=== PATIENT | male | born 1985 ===

== ENCOUNTER 2017-09-19 22:04 | Emergency (ER) | payer SELFPAY ==
[2017-09-19] MEDS ORDERED: Alum-Mag Hydrox-Simethicone Susp (30 mL) PO STA (22:17)
[2017-09-19 22:18] VITALS: BMI 28.0
--- NOTE | 2017-09-19 22:23 | ED PDOC ---
Arrival/HPI <Pb Dey - Last Filed: 09/19/17 22:42> - General Historian: Patient - History of Present Illness Time/Duration: 1 week Symptom Onset: Sudden Symptom Course: Unchanged Activities at Onset: Rest, Light Context: Home <Alexi Chisholm - Last Filed: 09/19/17 22:55> - General Time Seen by Provider: 09/19/17 22:05 - History of Present Illness Narrative History of Present Illness (Text): 09/19/17 22:17 A 32 year old male, with no significant past medical history, presents to the emergency department for a complaint of 1 week duration throat pain. The patient denies any URI symptoms. He states that it is occasionally associated with burping and his acid stomach coming up to the throat. The patient also notes that he had epigastric discomfort for the past few days but resolved, currently denies any abdominal pain at this time. He notes that he had an episode of epistaxis yesterday that resolved on its own as well, not on any blood thinner or anticoagulant, atraumatic. The patient denies fevers, chills, headache, dizziness, chest pain, shortness of breath, dyspnea on exertion, cough , abdominal pain, nausea, vomiting, diarrhea, back pain, neck pain, urinary/ bowel changes, recent travel, trauma/injury, or any other complaint. (Alexi Chisholm) Past Medical History - Provider Review Nursing Documentation Reviewed: Yes - Infectious Disease Hx of Infectious Diseases: None - Psychiatric Hx Substance Use: No - Anesthesia Hx Anesthesia: No <Alexi Chisholm - Last Filed: 09/19/17 22:55> Family/Social History - Physician Review Nursing Documentation Reviewed: Yes Family/Social History: No Known Family HX Smoking Status: Never Smoked Hx Alcohol Use: No Hx Substance Use: No <Alexi Chisholm - Last Filed: 09/19/17 22:55> Allergies/Home Meds <Pb Dey - Last Filed: 09/19/17 22:42> <Alexi Chisholm - Last Filed: 09/19/17 22:55> Allergies/Adverse Reactions: Allergies No Known Allergies Allergy (Verified 09/19/17 22:14) Review of Systems - Physician Review All systems were reviewed & negative as marked: Yes - Review of Systems Constitutional: absent: Fevers, Night Sweats ENT: Sore Throat ("Throat pain"). absent: Epistaxis Respiratory: absent: SOB, Cough Cardiovascular: absent: Chest Pain, ENRIQUE Gastrointestinal: absent: Abdominal Pain, Diarrhea, Nausea, Vomiting Genitourinary Male: absent: Urinary Output Changes Musculoskeletal: absent: Back Pain, Neck Pain Neurological: absent: Headache, Dizziness <Alexi Chisholm - Last Filed: 09/19/17 22:55> Physical Exam Vital Signs Reviewed: Yes Temperature: Afebrile Blood Pressure: Normal Pulse: Regular Respiratory Rate: Normal Appearance: Positive for: Well-Appearing, Non-Toxic, Comfortable Pain Distress: Mild Mental Status: Positive for: Alert and Oriented X 3 - Systems Exam Head: Present: Atraumatic, Normocephalic Pupils: Present: PERRL Extroacular Muscles: Present: EOMI Conjunctiva: Present: Normal Ears: Present: NORMAL TM, Normal Canal. No: Erythema Mouth: Present: Moist Mucous Membranes Pharnyx: No: ERYTHEMA, EXUDATE, TONSILS ENLARGED, Peritonsilar Swelling, Uvular Deviation, Muffled/Hoarse Voice, Strider, Soft Palate/Uvular Edema Nose (External): Present: Atraumatic. No: Abrasion, Contusion, Laceration Nose (Internal): Present: Normal Inspection, No Active Bleeding (No dry blood present.). No: Rhinorrhea, Septal Deviation, Septal Hematoma, Epistaxis Neck: Present: Normal Range of Motion Respiratory/Chest: Present: Clear to Auscultation, Good Air Exchange. No: Respiratory Distress, Accessory Muscle Use Cardiovascular: Present: Regular Rate and Rhythm, Normal S1, S2. No: Murmurs Abdomen: No: Tenderness, Distention, Peritoneal Signs, Rebound, Guarding Back: Present: Normal Inspection Upper Extremity: Present: Normal Inspection. No: Cyanosis, Edema Lower Extremity: Present: Normal Inspection. No: Edema Neurological: Present: GCS=15, CN II-XII Intact, Speech Normal Skin: Present: Warm, Dry, Normal Color. No: Rashes Psychiatric: Present: Alert, Oriented x 3, Normal Insight, Normal Concentration <Alexi Chisholm - Last Filed: 09/19/17 22:55> Vital Signs Temp Pulse Resp BP Pulse Ox 09/19/17 22:15 98.3 F 87 18 134/83 97 Medical Decision Making <Pb Dey - Last Filed: 09/19/17 22:42> <Alexi Chisholm - Last Filed: 09/19/17 22:55> ED Course and Treatment: 09/19/17 22:25 Impression: A 32 year old male presents to the emergency department for a complaint of 1 week duration throat pain, associated epigatric discomfort, an episode of epistaxis, and burping. Plan: -- Rapid Strep Test -- Bentyl, Lidocaine, Maalox -- Reassess and disposition 09/19/17 22:52 -Rapid strept is negative, pt. feels better, no signs of infection at this time , likely GI induced from GERD. -Discharge home with tylenol, pepcid, stay hdydrated, soft food diet, follow up with your own pmd and ENT within 2 days, return to the ER for any new or worsening signs or symptoms. (Alexi Chisholm) - Lab Interpretations Lab Results: Lab Results 09/19/17 22:23: Grp A Beta Strep Ag Negative - Medication Orders Current Medication Orders: Discontinued Medications Al Hydrox/Mg Hydrox/Simethicone (Maalox Plus 30 Ml) 30 ml PO STAT STA Stop: 09/19/17 22:18 Last Admin: 09/19/17 22:31 Dose: 30 ml Dicyclomine HCl (Bentyl) 20 mg PO STAT STA Stop: 09/19/17 22:18 Last Admin: 09/19/17 22:31 Dose: 20 mg Lidocaine HCl (Lidocaine 2% Viscous) 15 ml PO STAT STA Stop: 09/19/17 22:18 Last Admin: 09/19/17 22:31 Dose: 15 ml - PA / FEED PREPARATION OPERATOR / Resident Statement MARGRET has reviewed & agrees with the documentation as recorded. <bP Dey - Last Filed: 09/19/17 22:42> - PA / FEED PREPARATION OPERATOR / Resident Statement / has reviewed & agrees with the documentation as recorded. - Scribe Statement The provider has reviewed the documentation as recorded by the Scribe <Alexi Chisholm - Last Filed: 09/19/17 22:55> - Scribe Statement Joellen Patrick Provider Scribe Attestation: All medical record entries made by the Scribe were at my direction and personally dictated by me. I have reviewed the chart and agree that the record accurately reflects my personal performance of the history, physical exam, medical decision making, and the department course for this patient. I have also personally directed, reviewed, and agree with the discharge instructions and disposition. (Alexi Chisholm) Disposition/Present on Arrival <Pb Dey - Last Filed: 09/19/17 22:42> - Present on Arrival Any Indicators Present on Arrival: No History of DVT/PE: No History of Uncontrolled Diabetes: No Urinary Catheter: No History of Decub. Ulcer: No History Surgical Site Infection Following: None - Disposition Have Diagnosis and Disposition been Completed?: Yes Disposition Time: 22:54 Patient Plan: Discharge <Alexi Chisholm - Last Filed: 09/19/17 22:55> - Disposition Diagnosis: Throat pain Disposition: HOME/ ROUTINE Condition: GOOD Additional Instructions: -Discharge home with tylenol, pepcid, stay hdydrated, soft food diet, follow up with your own pmd and ENT within 2 days, return to the ER for any new or worsening signs or symptoms. Prescriptions: Acetaminophen [Tylenol] 2 cap PO QID PRN #30 capsule PRN Reason: Other Famotidine [Pepcid] 20 mg PO BID #10 tab Referrals: PCP,MERLE [Primary Care Provider] - Follow up with primary Brian David DO [Doctor Osteopathy] - Follow up with primary Isai Abreu MD [Staff Provider] - Follow up with primary Forms: WORK NOTE
[2017-09-19 23:34] VITALS: BP 131/71; PULSE 82; RESP 17; TEMP 98.2; O2SAT 100
== END 2017-09-19 23:36 | disposition home or self-care (01) ==
LOC: ED 22:04
DX: R07.0 Pain in throat (principal)

== ENCOUNTER 2018-01-01 20:10 | Emergency (ER) | payer MEDICAID, OTHER ==
[2018-01-01 22:09] VITALS: BMI 25.8
--- NOTE | 2018-01-01 22:59 | CP.PCM.CON ---
History of Present Illness - History of Present Illness History of Present Illness: 32M s/p laparoscopic appendectomy done on 12/19/17 presents to [facility] ED for post op surgical evaluation. Patient reports he wasn't able to make it to Dr. James's office and just wanted reassurance that post operatively he was doing okay. Patient reports mild pain along surgical incision sites. He states he has been eating a regular diet without any issues. He reports having normal bowel movements. Denies fevers/chills, chest pain, shortness of breath, nausea/vomiting. Patient reports dysuria. However, he states he has been experiencing this for weeks prior to surgical intervention. 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 Prior to d/c patient was given a script with instructions to continue light duty until at least January 19. Review of Systems - Review of Systems Review of Systems: 10 pt ROS unremarkable, except as stated in HPI Past Patient History - Infectious Disease Hx of Infectious Diseases: None - Past Medical History & Family History Past Medical History?: Yes - Past Social History Smoking Status: Never Smoked - CARDIAC Hx Cardiac Disorders: No - PULMONARY Hx Respiratory Disorders: No - NEUROLOGICAL Hx Neurological Disorder: No - HEENT Hx HEENT Problems: No - RENAL Hx Chronic Kidney Disease: No - ENDOCRINE/METABOLIC Hx Endocrine Disorders: No - HEMATOLOGICAL/ONCOLOGICAL Hx Blood Disorders: No - INTEGUMENTARY Hx Dermatological Problems: No - MUSCULOSKELETAL/RHEUMATOLOGICAL Hx Musculoskeletal Disorders: No Hx Falls: No - GASTROINTESTINAL Hx Gastrointestinal Disorders: No - GENITOURINARY/GYNECOLOGICAL Hx Genitourinary Disorders: No - PSYCHIATRIC Hx Psychophysiologic Disorder: No Hx Substance Use: No - SURGICAL HISTORY Hx Surgeries: No - ANESTHESIA Hx Anesthesia: No Hx Anesthesia Reactions: No Hx Malignant Hyperthermia: No Meds Allergies/Adverse Reactions: Allergies Allergy/AdvReac Type Severity Reaction Status Date / Time No Known Allergies Allergy Verified 09/19/17 22:14 Physical Exam - Constitutional Appears: No Acute Distress - Head Exam Head Exam: NORMOCEPHALIC - Eye Exam Eye Exam: EOMI, Normal appearance - ENT Exam ENT Exam: Mucous Membranes Moist - Respiratory Exam Respiratory Exam: NORMAL BREATHING PATTERN - Cardiovascular Exam Cardiovascular Exam: +S1, +S2 - GI/Abdominal Exam GI & Abdominal Exam: Soft, Tenderness. absent: Distended, Firm, Guarding, Hernia, Rebound, Rigid Additional comments: mild tenderness along surgical incision sites No erythema nor purulent discharge noted - Neurological Exam Neurological exam: Alert, Oriented x3 - Psychiatric Exam Psychiatric exam: Normal Mood - Skin Skin Exam: Dry, Intact, Warm Assessment & Plan - Assessment and Plan (Free Text) Assessment: 32M s/p laparoscopic appendectomy on 12/19/17 presents for post operative surgical evaluation Plan: Surgical incision sites healing appropriately No erythema nor discharge noted from sites Patient tolerating regular diet and having normal bowel function Recommend UA for complaint of dysuria Patient may follow up with Dr. James outpatient No acute surgical intervention needed at this present time Further recs per Dr. Jacob Bridges PGY3
--- NOTE | 2018-01-01 23:27 | ED PDOC ---
Arrival/HPI - General Chief Complaint: Male Genitourinary Time Seen by Provider: 01/01/18 22:23 Historian: Patient - History of Present Illness Narrative History of Present Illness (Text): 01/01/18 23:16 A 32 year old male, s/p appendectomy (12/[address] [facility] by Dr. James) presents to the emergency department with a complaint of mild discomfort since the surgery. The patient notes that he has been unable to follow up since the surgery stating that he was unsure of where or how. He states that the discomfort is to the lower abdomen when he moves and wears a belt around his waist. He notes that the pain has been consistent since after the surgery. He states that it is not worsening. He also reports dysuria. The patient denies fevers, chills, headache, dizziness, chest pain, shortness of breath, dyspnea on exertion, cough, sore throat, nausea, vomiting, diarrhea, back pain, neck pain, bowel changes, trauma/injury, or any other complaints. Time/Duration: Other (Few weeks) Symptom Onset: Sudden Symptom Course: Unchanged Activities at Onset: Rest, Light Context: Home Past Medical History - Provider Review Nursing Documentation Reviewed: Yes - Infectious Disease Hx of Infectious Diseases: None - Cardiac Hx Cardiac Disorders: No - Pulmonary Hx Respiratory Disorders: No - Neurological Hx Neurological Disorder: No - HEENT Hx HEENT Disorder: No - Renal Hx Renal Disorder: No - Endocrine/Metabolic Hx Endocrine Disorders: No - Hematological/Oncological Hx Blood Disorders: No - Integumentary Hx Dermatological Disorder: No - Musculoskeletal/Rheumatological Hx Musculoskeletal Disorders: No Hx Falls: No - Gastrointestinal Hx Gastrointestinal Disorders: No - Genitourinary/Gynecological Hx Genitourinary Disorders: No - Psychiatric Hx Psychophysiologic Disorder: No Hx Substance Use: No - Anesthesia Hx Anesthesia: No Hx Anesthesia Reactions: No Hx Malignant Hyperthermia: No Family/Social History - Physician Review Nursing Documentation Reviewed: Yes Family/Social History: No Known Family HX Smoking Status: Never Smoked Hx Alcohol Use: No Hx Substance Use: No Allergies/Home Meds Allergies/Adverse Reactions: Allergies No Known Allergies Allergy (Verified 09/19/17 22:14) Review of Systems - Physician Review All systems were reviewed & negative as marked: Yes - Review of Systems Constitutional: absent: Fevers ENT: absent: Sore Throat Respiratory: absent: SOB, Cough Cardiovascular: absent: Chest Pain Gastrointestinal: Abdominal Pain (Lower abdominal pain s/p apendectomy). absent: Stool Changes, Diarrhea, Nausea, Vomiting Genitourinary Male: Dysuria Musculoskeletal: absent: Back Pain, Neck Pain Neurological: absent: Headache, Dizziness Physical Exam Vital Signs Reviewed: Yes Appearance: Positive for: Well-Appearing, Non-Toxic, Comfortable Pain Distress: None Mental Status: Positive for: Alert and Oriented X 3 - Systems Exam Head: Present: Atraumatic, Normocephalic Pupils: Present: PERRL Extroacular Muscles: Present: EOMI Conjunctiva: Present: Normal Mouth: Present: Moist Mucous Membranes Neck: Present: Normal Range of Motion Respiratory/Chest: Present: Clear to Auscultation, Good Air Exchange. No: Respiratory Distress, Accessory Muscle Use Cardiovascular: Present: Regular Rate and Rhythm, Normal S1, S2. No: Murmurs Abdomen: Present: Other (Surgical scar healed in umbilicus and left lower quadrant.). No: Tenderness, Distention, Peritoneal Signs Back: Present: Normal Inspection Upper Extremity: Present: Normal Inspection. No: Cyanosis, Edema Lower Extremity: Present: Normal Inspection. No: Edema Neurological: Present: GCS=15, CN II-XII Intact, Speech Normal Skin: Present: Warm, Dry, Normal Color. No: Rashes Psychiatric: Present: Alert, Oriented x 3, Normal Insight, Normal Concentration Medical Decision Making ED Course and Treatment: 01/01/18 23:28 Impression: A 32 year old male presents to the emergency department with a complaint of left lower abdominal pain s/p appendectomy. Plan: -- Surgical consult -- UA -- Reassess and disposition Progress Notes: Previous reports reviewed. 01/01/18 23:29 : Patient was seen and evaluated by surgical garment assembler (Elvin Martin) who surgically cleared the patient. Stated that no immediate intervention is needed at this time from a surgical standpoint. States patient can be discharged home with outpatient follow up at the clinic, only to order a UA. UA ordered 01/01/18 23:50 UA still has not resulted. Patient is refusing to wait for UA results. Patient refuses to wait for UA results, is refusing further care, evaluation or treatment in the ER. Patient informed of the reasons for the following and planned treatment, which patient understands, however still refuses. Patient informed of the risk and benefits of treatment. Informed that the risk could include worsening of current conditions, undiagnosed conditions, disability or even . Patient understands the following risk and the benefits of treatment. Patient has the capacity to make decisions and still refuses treatment by RN, PA and ER MD. Patient encouraged to return to the ER at any time and to follow up with pmd. - PA / MORTGAGE FIELD INSPECTOR / Resident Statement MD/DO has reviewed & agrees with the documentation as recorded. - Scribe Statement The provider has reviewed the documentation as recorded by the Scribe Joellen Patrick Provider Scribe Attestation: All medical record entries made by the Scribe were at my direction and personal ly dictated by me. I have reviewed the chart and agree that the record accurately reflects my personal performance of the history, physical exam, medical decision making, and the department course for this patient. I have also personally directed, reviewed, and agree with the discharge instructions and disposition. Disposition/Present on Arrival - Present on Arrival Any Indicators Present on Arrival: No History of DVT/PE: No History of Uncontrolled Diabetes: No Urinary Catheter: No History of Decub. Ulcer: No History Surgical Site Infection Following: None - Disposition Have Diagnosis and Disposition been Completed?: Yes Diagnosis: S/P appendectomy, follow-up exam Disposition: AGAINST MEDICAL ADVICE Disposition Time: 00:00 Patient Plan: Discharge Patient Problems: Current Active Problems Problem Status Onset S/P appendectomy, follow-up exam Acute Condition: STABLE Discharge Instructions (ExitCare): Appendectomy, Laparoscopic Surgery (DC), Leaving Against Medical Advice Additional Instructions: Thank you for letting us take care of you today. You are choosing to leave against medical advice. You were evaluated for s/p appendectomy follow up. The emergency medical care you received today was directed at your acute symptoms. It may take several days for your symptoms to resolve. Return to the Emergency Department if your symptoms worsen, do not improve, or if you have any other problems. Please contact the clinic in 2 days for re-evaluation and follow up. Bring any paperwork you were given at discharge with you along with any medications you are taking to your follow up visit. Our treatment cannot replace ongoing medical care by a primary care provider (PCP) outside of the emergency department. Thank you for allowing the [facility] [employer] team to be part of your care today. If you had a urine culture: It will take several days for the results, if any change in treatment is needed we will contact you. Referrals: [facility] at [facility] [Outside] - Follow up with primary Forms: [employer] (Austrian), WORK NOTE
[2018-01-02 00:32] LABS: URINE BILIRUBIN NEGATIVE (NEGATIVE); URINE BLOOD NEGATIVE (NEGATIVE); URINE GLUCOSE (UA) NEGATIVE (NEGATIVE); URINE LEUKOCYTE ESTERASE NEGATIVE Leu/uL (NEGATIVE); URINE PROTEIN NEGATIVE mg/dL (<30 mg/dL); URINE UROBILINOGEN 0.2 E.U./dL (<1 E.U./dL)
[2018-01-02 00:43] LABS: URINE APPEARANCE CLEAR (CLEAR); URINE COLOR YELLOW (YELLOW)
[2018-01-02 03:41] VITALS: BP 136/72; PULSE 80; RESP 18; TEMP 98.6; O2SAT 100
== END 2018-01-02 00:20 | disposition left against medical advice (07) ==
LOC: ED 20:10
DX: Z48.89 Encounter for other specified surgical aftercare (principal); Z98.890 Other specified postprocedural states

== ENCOUNTER 2018-01-13 15:14 | Emergency (ER) | payer OTHER ==
[2018-01-13 15:35] VITALS: BMI 35.0
[2018-01-13 15:56] VITALS: BP 134/90; PULSE 79; RESP 18; TEMP 97.9; O2SAT 99
--- NOTE | 2018-01-13 16:29 | ED PDOC ---
Arrival/HPI - General Historian: Patient - History of Present Illness Narrative History of Present Illness (Text): 01/13/18 16:21 32 yo M s/p laparoscopic appendectomy (12/19, Dr. James) presenting to the ED after noticing his incision site "was bleeding" yesterday. He states that "I noticed it reopen". Patient also endorses dysuria last night and this morning, no sary blood noted in the urine, and mild abdominal pain around the incision site. Patient had no drains, per surgical note. Of note, patient was re-evaluated by resident medical officer on 01/01/18; no erythema or discharge noted from the site, healing appropriately. ROS otherwise negative at this time. Time/Duration: 24 hours Symptom Onset: Sudden Symptom Course: Resolved Severity Level: Mild Activities at Onset: Light <Tavon Montana - Last Filed: 01/13/18 20:16> <Jesse Sabillon - Last Filed: 01/13/18 23:18> - General Chief Complaint: Abdominal Pain Time Seen by Provider: 01/13/18 15:27 Past Medical History - Provider Review Nursing Documentation Reviewed: Yes - Infectious Disease Hx of Infectious Diseases: None - Cardiac Hx Cardiac Disorders: No - Pulmonary Hx Respiratory Disorders: No - Neurological Hx Neurological Disorder: No - HEENT Hx HEENT Disorder: No - Renal Hx Renal Disorder: No - Endocrine/Metabolic Hx Endocrine Disorders: No - Hematological/Oncological Hx Blood Disorders: No - Integumentary Hx Dermatological Disorder: No - Musculoskeletal/Rheumatological Hx Musculoskeletal Disorders: No - Gastrointestinal Hx Gastrointestinal Disorders: No - Genitourinary/Gynecological Hx Genitourinary Disorders: No - Psychiatric Hx Psychophysiologic Disorder: No Hx Substance Use: No - Anesthesia Hx Anesthesia: No Hx Anesthesia Reactions: No Hx Malignant Hyperthermia: No <Tavon Montana - Last Filed: 01/13/18 20:16> Family/Social History - Physician Review Nursing Documentation Reviewed: Yes Family/Social History: Unknown Family HX Smoking Status: Never Smoked Hx Alcohol Use: No Hx Substance Use: No <Tavon Montana - Last Filed: 01/13/18 20:16> Allergies/Home Meds <Tavon Montana - Last Filed: 01/13/18 20:16> <Jesse Sabillon - Last Filed: 01/13/18 23:18> Allergies/Adverse Reactions: Allergies No Known Allergies Allergy (Verified 01/13/18 15:35) Home Medications: Home Meds Medication Instructions Recorded Confirmed RX: No Known Home Med 01/13/18 01/13/18 Review of Systems - Review of Systems Constitutional: Normal Eyes: Normal ENT: Normal Respiratory: Normal Cardiovascular: Normal Gastrointestinal: Abdominal Pain (mild discomfort around incision site). absent: Stool Changes, Constipation, Diarrhea, Nausea, Vomiting Genitourinary Male: Dysuria. absent: Frequency, Hematuria, Urinary Output Changes Musculoskeletal: Normal Skin: Normal Neurological: Normal Endocrine: Normal Hemo/Lymphatic: Normal Psychiatric: Normal <Tavon Montana - Last Filed: 01/13/18 20:16> Physical Exam - Physical Exam Narrative Physical Exam (Text): 01/13/18 16:35 Surgical incision site is clean, dry, intact No bleeding or expression of serosanguinious fluid noted No erythema noted around site; healing appropriately Vital Signs Reviewed: Yes Vital Signs Temp Pulse Resp BP Pulse Ox 01/13/18 15:46 97.9 F 79 18 134/90 99 Temperature: Afebrile Blood Pressure: Normal Pulse: Regular Respiratory Rate: Normal Appearance: Positive for: Well-Appearing, Non-Toxic, Comfortable Pain Distress: None Mental Status: Positive for: Alert and Oriented X 3 - Systems Exam Head: Present: Atraumatic, Normocephalic Pupils: Present: PERRL Extroacular Muscles: Present: EOMI Conjunctiva: Present: Normal Mouth: Present: Moist Mucous Membranes Neck: Present: Normal Range of Motion Respiratory/Chest: Present: Clear to Auscultation, Good Air Exchange. No: Respiratory Distress, Accessory Muscle Use, Wheezes, Rales, Rhonchi Cardiovascular: Present: Regular Rate and Rhythm, Normal S1, S2 Abdomen: Present: Normal Bowel Sounds. No: Tenderness, Distention, Peritoneal Signs, Rebound, Guarding, Mass/Organomegaly Upper Extremity: Present: Normal Inspection, Normal ROM, NORMAL PULSES, Capillary Refill < 2s. No: Cyanosis, Edema, Tenderness, Swelling, Erythema Lower Extremity: Present: Normal Inspection, NORMAL PULSES. No: Edema, CALF TENDERNESS, Tenderness, Swelling, Capillary Refill < 2 s Neurological: Present: CN II-XII Intact, Speech Normal Skin: Present: Warm, Dry, Normal Color. No: Rashes Psychiatric: Present: Alert, Oriented x 3, Normal Insight, Normal Concentration <Tavon Montana - Last Filed: 01/13/18 20:16> Vital Signs Temp Pulse Resp BP Pulse Ox 01/13/18 15:46 97.9 F 79 18 134/90 99 <Jesse Sabillon - Last Filed: 01/13/18 23:18> Medical Decision Making ED Course and Treatment: 01/13/18 16:34 Impression: 32 yo M presenting to ED with episode of "bleeding from surgical incision site, dysuria x 1 day. Plan: --CBC, CMP --UA --reassess and disposition 01/13/18 16:[address] Arias seen assessing patient. Notes surgical site healing appropriately. No acute surgical intervention needed at this time. May follow up outpatient if symptoms persist or worsen. 01/13/18 17:30 Labs wnl. Patient medically stable for discharge. Instructed to follow up outpatient surgery if symptoms worsen or persist. <Tavon Montana - Last Filed: 01/13/18 20:16> ED Course and Treatment: 01/13/18 16:56 Pt in NAD, surgical incision site clean, dry, non-erythematous, no crepitus or ttp. Healing well. No rectal fullness or pain w/ defacation or testicular pain. No difficulty urinating. Will seek UA for dysuria and basic labs. <Jesse Sabillon - Last Filed: 01/13/18 23:18> - PA / SOFTWARE PRODUCT MANAGER / Resident Statement MARGRET has reviewed & agrees with the documentation as recorded. MARGRET has examined the patient and agrees with the treatment plan. <Jesse Sabillon - Last Filed: 01/13/18 23:18> Disposition/Present on Arrival - Present on Arrival Any Indicators Present on Arrival: No History of DVT/PE: No History of Uncontrolled Diabetes: No Urinary Catheter: No History of Decub. Ulcer: No History Surgical Site Infection Following: None - Disposition Have Diagnosis and Disposition been Completed?: Yes Disposition Time: 17:31 Patient Plan: Discharge <Tavon Montana - Last Filed: 01/13/18 20:16> <Jesse Sabillon - Last Filed: 01/13/18 23:18> - Disposition Diagnosis: Abdominal pain Disposition: HOME/ ROUTINE Patient Problems: Current Active Problems Problem Status Onset Abdominal pain Acute Condition: GOOD Additional Instructions: KRISH BLANCAS, thank you for letting us take care of you today. Your provider was Jesse Sabillon and you were treated for ABD PAIN. The emergency medical care you received today was directed at your acute symptoms. If you were prescribed any medication, please fill it and take as directed. It may take several days for your symptoms to resolve. Return to the Emergency Department if your symptoms worsen, do not improve, or if you have any other problems. Please contact your doctor or call one of the physicians/clinics you have been referred to that are listed on the Patient Visit Information form that is included in your discharge packet. Bring any paperwork you were given at discharge with you along with any medications you are taking to your follow up visit. Our treatment cannot replace ongoing medical care by a primary care provider outside of the emergency department. Thank you for allowing the [facility] team to be part of your care today. Please follow up with surgery outpatient if symptoms persist or worsen. Please return to ED if dark red blood noted from incision site. Referrals: Gilbert James MD [Staff Provider] - Follow up with primary Forms: Hello Curry (Indonesian)
[2018-01-13 17:15] LABS: BASO # 0.04 K/mm3 (0.0-2.0); BASO % 0.5 % (0.0-3.0); EOS # 0.1 (0.0-0.7); EOS % 0.9 % (1.5-5.0); GRAN # 4.87 (1.4-6.5); GRAN % 55.3 % (50.0-68.0); HEMOGLOBIN 16.3 g/dL (14.0-18.0); LYMPH # 3.3 (1.2-3.4); MEAN CELL VOLUME 84.3 fl (80.0-105.0); MEAN CORPUSCULAR HEMOGLOBIN 29.7 pg (25.0-35.0); MEAN CORPUSCULAR HGB CONC 35.3 g/dl (31.0-37.0); MEAN PLATELET VOLUME 11.2 fl (7.0-11.0); MONO # 0.6 (0.1-0.6); MONO % 6.3 % (1.0-6.0); RBC 5.48 10^6/uL (3.5-6.1); URINE BILIRUBIN NEGATIVE (NEGATIVE); URINE BLOOD NEGATIVE (NEGATIVE); URINE GLUCOSE (UA) NEGATIVE (NEGATIVE); URINE LEUKOCYTE ESTERASE NEGATIVE Leu/uL (NEGATIVE); URINE PROTEIN NEGATIVE mg/dL (<30 mg/dL); URINE UROBILINOGEN 0.2 E.U./dL (<1 E.U./dL); WHITE BLOOD COUNT 8.8 10^3/ul (4.5-11.0)
[2018-01-13 17:20] LABS: URINE APPEARANCE CLEAR (CLEAR); URINE COLOR YELLOW (YELLOW)
[2018-01-13 17:30] LABS: ALB/GLOB RATIO 1.2 (1.1-1.8); ALBUMIN 4.3 g/dL (3.0-4.8); ALT/SGPT 107 U/L (7-56); AST/SGOT 82 U/L (17-59); BLOOD UREA NITROGEN 8 mg/dL (7-21); CALCIUM 9.8 mg/dL (8.4-10.5); GFR NON-AFRICAN AMERICAN > 60
== END 2018-01-13 17:35 | disposition home or self-care (01) ==
LOC: ED 15:14
DX: R10.9 Unspecified abdominal pain (principal)